=== PATIENT | female | born 1980 | race Caucasian/White ===

== ENCOUNTER 2018-01-23 16:27 | Emergency (ER) | payer MEDICARE ==
[2018-01-23 16:27] VITALS: BMI 15.0
--- NOTE | 2018-01-23 17:37 | C.PDOC ---
History Of Present Illness 37-year-old female, PMHx of depression, anxiety, anorexia, and bulimia, presents to the emergency department with complaints of right-lower abdominal pain x5 days, that is associated with nausea and diarrhea. Patient denies vomiting, fever or chills. LMP 02/02 <Janel Gregg - Last Filed: 01/23/18 18:46> History Per: Patient History/Exam Limitations: no limitations <Janel Gregg - Last Filed: 01/23/18 18:46> <Kary Houser - Last Filed: 01/23/18 22:50> Time Seen by Provider: 01/23/18 17:08 Chief Complaint (Nursing): Abdominal Pain Past Medical History Reviewed: Historical Data, Nursing Documentation, Vital Signs Vital Signs: Last Vital Signs Temp 98.4 F 01/23/18 16:59 Pulse 84 01/23/18 16:59 Resp 18 01/23/18 16:59 BP 115/74 01/23/18 16:59 Pulse Ox 100 01/23/18 16:59 - Medical History PMH: Anemia, Anxiety, Bipolar Disorder, Depression Surgical History: Cholecystectomy Family History: States: No Known Family Hx - Social History Hx Alcohol Use: Yes Hx Substance Use: Yes - Immunization History Hx Tetanus Toxoid Vaccination: No Hx Influenza Vaccination: No Hx Pneumococcal Vaccination: No <Janel Gregg - Last Filed: 01/23/18 18:46> Vital Signs: Last Vital Signs Temp 98.4 F 01/23/18 16:59 Pulse 84 01/23/18 16:59 Resp 18 01/23/18 16:59 BP 115/74 01/23/18 16:59 Pulse Ox 100 01/23/18 18:47 <Kary Houser - Last Filed: 01/23/18 22:50> Review Of Systems Constitutional: Negative for: Fever Gastrointestinal: Positive for: Nausea, Abdominal Pain, Diarrhea <Janel Gregg - Last Filed: 01/23/18 18:46> Physical Exam - Physical Exam Appears: Non-toxic, No Acute Distress Skin: Warm, Dry, No Rash Head: Atraumatic, Normacephalic Eye(s): bilateral: Normal Inspection, PERRL, EOMI Nose: Normal Oral Mucosa: Moist Neck: Normal ROM Cardiovascular: Rhythm Regular, No Murmur Respiratory: Normal Breath Sounds, No Accessory Muscle Use Gastrointestinal/Abdominal: Soft, Tenderness (mild RLQ) Back: Normal Inspection Extremity: Normal ROM, No Deformity Neurological/Psych: Oriented x3, Normal Speech <Janel Gregg Last Filed: 01/23/18 18:46> ED Course And Treatment - Laboratory Results Result Diagrams: 01/23/18 18:29 Urine POC: Negative O2 Sat by Pulse Oximetry: 100 Pulse Ox Interpretation: Normal (RA) <Janel Gregg - Last Filed: 01/23/18 18:46> - Laboratory Results Result Diagrams: 01/23/18 18:29 01/23/18 18:29 <Kary Houser - Last Filed: 01/23/18 22:50> Progress - Data Reviewed Data Reviewed: Lab, Diagnostic imaging, Old records <Janel Gregg Filed: 01/23/18 18:46> Disposition Counseled Patient/Family Regarding: Diagnosis - Disposition Disposition Time: 19:00 - POA Present On Arrival: None <Janel Gregg Filed: 01/23/18 18:46> Counseled Patient/Family Regarding: Studies Performed, Diagnosis, Need For Followup, Rx Given <Kary Houser - Last Filed: 01/23/18 22:50> - Disposition Disposition: HOME/ ROUTINE Condition: FAIR Additional Instructions: Please return if symptoms recur Prescriptions: Naproxen [Naprosyn] 1 tab PO BID PRN #25 tab PRN Reason: Pain Ondansetron ODT [Zofran ODT] 1 odt PO BID PRN #6 odt PRN Reason: Nausea/Vomiting Instructions: Renal Colic (DC), Kidney Stones (DC) Forms: [employer] (Montenegrin) - Clinical Impression Clinical Impression: Abdominal pain, Renal colic on right side, Kidney stone on right side - Scribe Statement The provider has reviewed the documentation as recorded by the Scribe (Natasha Mclaughlin) Provider Attestation: All medical record entries made by the Scribe were at my direction and personall y dictated by me. I have reviewed the chart and agree that the record accurately reflects my personal performance of the history, physical exam, medical decision making, and the department course for this patient. I have also personally directed, reviewed, and agree with the discharge instructions and disposition. <Janel Gregg - Last Filed: 01/23/18 18:46> Physician Patient Turnover Patient Signed Over To: Kary Houser Handoff Comments: FU CT, US, DISPO <Janel Gregg - Last Filed: 01/23/18 18:46>
[2018-01-23 18:32] LABS: BASO % 0.5 % (0.0-2.0); EOS % 0.2 % (0.0-4.0); HEMOGLOBIN 11.8 g/dL (11.0-16.0); LYMPH # 1.2 K/uL (1.0-4.3); LYMPH % 12.9 % (20.0-40.0); MEAN CORPUSCULAR HEMOGLOBIN 25.1 pg (27.0-31.0); MEAN CORPUSCULAR HGB CONC 31.8 g/dL (33.0-37.0); MONO # 0.8 K/uL (0.0-0.8); MONO % 8.8 % (0.0-10.0); NEUT % 77.6 % (50.0-75.0); NRBC % 0.1 % (0.0-2.0); RBC 4.71 Mil/uL (3.80-5.20); RED CELL DISTRIBUTION WIDTH 16.8 % (11.5-14.5)
[2018-01-23 18:35] LABS: MEAN CELL VOLUME 79.1 fL (81.0-99.0)
[2018-01-23 18:36] LABS: SQUAMOUS EPITHIAL 4 /hpf (0-5); URINE BACTERIA RARE (<OCC); URINE BILIRUBIN NEGATIVE (NEGATIVE); URINE BLOOD 1+ (NEGATIVE); URINE CLARITY Clear (Clear); URINE COLOR Yellow (YELLOW); URINE GLUCOSE (UA) NORMAL (Normal); URINE LEUKOCYTE ESTERASE NEG Leu/uL (Negative); URINE PROTEIN NEGATIVE (NEGATIVE); URINE URIC ACID CRYSTALS OCC /hpf (<OCC); URINE UROBILINOGEN NORMAL mg/dL (0.2-1.0)
[2018-01-23 18:49] LABS: ALB/GLOB RATIO 1.5 (1.0-2.1); ALBUMIN 3.8 g/dL (3.5-5.0); ALT/SGPT 18 U/L (9-52); AST/SGOT 19 U/L (14-36); BLOOD UREA NITROGEN 7 mg/dL (7-17); CALCIUM 8.9 mg/dl (8.6-10.4); GFR NON-AFRICAN AMERICAN 56; LIPASE 89 U/L (23-300)
[2018-01-23] MEDS ORDERED: Iohexol 240 (50 ml) ONE (19:30)
[2018-01-23] MEDS: Iohexol 240 (50 ml) PO STA ×2 (19:35→20:17)
[2018-01-23] MEDS ORDERED: Iohexol 300 100 ML IJ ONE (20:42)
[2018-01-23 23:06] VITALS: BP 110/70; PULSE 70; RESP 14; TEMP 98.5; O2SAT 99
--- NOTE | 2018-01-24 10:26 | CT ---
PROCEDURE: CT Abdomen and Pelvis with oral and IV contrast. HISTORY: abd pain RLQ COMPARISON: None available. TECHNIQUE: Contiguous axial images of the abdomen and pelvis. Oral and IV contrast was administered. Coronal and Sagittal reformats generated and reviewed. Contrast dose: 100 mL Omnipaque 300 Radiation dose: Total exam DLP = 203.04 mGy-cm. This CT exam was performed using one or more of the following dose reduction techniques: Automated exposure control, adjustment of the mA and/or kV according to patient size, and/or use of iterative reconstruction technique. FINDINGS: LOWER THORAX: No visible consolidation, pleural effusion, or pneumothorax. LIVER: Unremarkable. GALLBLADDER AND BILE DUCTS: Cholecystectomy. PANCREAS: Unremarkable. SPLEEN: Unremarkable. ADRENALS: Unremarkable. KIDNEYS AND URETERS: The kidneys enhance symmetrically. Right perinephric fluid. 3 mm calculus at the right UVJ with moderate proximal hydronephrosis and hydroureter. BLADDER: The urinary bladder appears unremarkable. REPRODUCTIVE: Uterus is present. APPENDIX: The presumed appendix appears within normal limits of caliber. No secondary signs of acute appendicitis. BOWEL: The stomach is nondistended. The bowel loops appear within normal limits of caliber without evidence of intestinal obstruction. Moderate constipation. Under distension of the distal colon limits evaluation. PERITONEUM: No significant free fluid. No definite free air. LYMPH NODES: No bulky lymphadenopathy identified. VASCULATURE: No atherosclerotic calcification of the abdominal aorta present. No aortic aneurysm. BONES: Degenerative changes. OTHER FINDINGS: None. IMPRESSION: Right perinephric fluid. 3 mm calculus at the right UVJ with moderate proximal hydronephrosis and hydroureter. Moderate constipation. Under distension of the distal colon limits evaluation. Additional findings as above. Preliminary impression was provided by [employer]
--- NOTE | 2018-01-24 11:06 | US ---
Date of service: 01/23/2018 HISTORY: RLQ/PELVIC PAIN COMPARISON: Prior ultrasound available for comparison. TECHNIQUE: Transvaginal pelvic ultrasound. FINDINGS: UTERUS: Measures 5.8 x 2.5 x 2.7 cm. Anteverted. ENDOMETRIUM: Measures 3 mm in diameter. CERVIX: No cervical abnormality identified. RIGHT OVARY: Measures 2.1 x 1.1 x 2.5 cm. Blood flow is demonstrated. 0.9 x 0.6 x 0.9 cm follicle. LEFT OVARY: Measures 2.6 x 1.2 x 2.4 cm. Blood flow is demonstrated. 1.1 x 0.8 x 1.0 cm and 0.9 x 0.8 x 1.0 cm follicles. FREE FLUID: No significant free fluid noted. OTHER FINDINGS: None. IMPRESSION: No acute findings identified. Preliminary impression was provided by [facility]
== END 2018-01-23 23:06 | disposition home or self-care (01) ==
LOC: C.ER 16:27
DX: N20.0 Calculus of kidney (principal)
CPT/HCPCS: 74177; 76830; 80053; 81001; 83690; 85025; 96374; 99284; Q9966; Q9967